=== PATIENT | male | born 1975 | race Two or more races ===

== ENCOUNTER → 2024-11-12 | Emergency (ER) | payer OTHER ==
[~2024-11-12] VITALS: Ht 180.3 cm; Wt 86.2 kg
[~2024-11-12] MED LIST: CEFTRIAXONE SODIUM 2,000 MG VIAL IV ONE; COZAAR50 MG PO
== END | disposition home or self-care (01) ==
LOC: ER 11:06
DX: L02.91 Cutaneous abscess, unspecified (principal); I10 Essential (primary) hypertension